=== PATIENT | female | born 1950 | race Caucasian/White ===

== ENCOUNTER 2021-11-20 22:38 | Emergency (ER) | payer BC, MEDICAID ==
[~2021-11-20] VITALS: Ht 157.5 cm; Wt 81.8 kg
[2021-11-20] MEDS ORDERED: HYDR25TA2 PO (22:47)
[2021-11-20] MEDS ORDERED: SIMV-259 PO (22:47)
[2021-11-20] MEDS ORDERED: LOSA-381 PO (22:47)
[2021-11-20 22:55] VITALS: BP 129/74
[2021-11-20] MEDS ORDERED: ACETAMINOPHEN 500 MG TABLET PO ONE (23:00)
[2021-11-20] MEDS ORDERED: AMOX TR/POT CLAV 875 MG/125 MG TABLET PO ONE (23:00)
[2021-11-20] MEDS ORDERED: AMOX1TAB16 PO (23:14)
== END 2021-11-20 23:36 | disposition home or self-care (01) ==
LOC: EMS 22:41
DX: S02.5XXA Fracture of tooth (traumatic), initial encounter for closed fracture (principal); I10 Essential (primary) hypertension; Z79.899 Other long term (current) drug therapy; X58.XXXA Exposure to other specified factors, initial encounter; Y93.89 Activity, other specified; Y92.89 Other specified places as the place of occurrence of the external cause; Y99.8 Other external cause status
CPT/HCPCS: 99283